=== PATIENT | male | born 1970 | race Caucasian/White ===

== ENCOUNTER 2024-03-10 11:32 | Emergency (ER) | payer OTHER, SELFPAY ==
--- NOTE | ~2024-03-10 | XR_ITS ---
EXAMINATION: XR chest 2V DATE: 03/10/2024 12:52 INDICATION: Chest pain TECHNIQUE: PA and lateral views of the chest were obtained. COMPARISON: None FINDINGS: The lungs are clear with no focal airspace opacities, pulmonary edema, pleural effusion or pneumothor ax. The cardiomediastinal silhouette is normal. Visualized bones and soft tissues are unremarkable. IMPRESSION: 1. No acute cardiopulmonary disease. Reviewed, dictated and finalized at location A.
--- NOTE | 2024-03-10 11:34 | ECG_ITS ---
Test Date: 2024-03-10 11:39:16 Measurements Intervals [place] Rate: 62 P: 69 VT: 176 QRS: 71 QRSD: 89 T: 54 QT: 371 QTc: 379 Interpretive Statements SINUS RHYTHM No previous ECG available for comparison Electronically Signed On 03-10-2024 11:57:20 CDT by Aung Pate M.D.
[2024-03-10 11:55] VITALS: BP 126/74; PULSE 62; RESP 16; TEMP 36.3; O2SAT 97
[2024-03-10 11:56] LABS: Basophils Percent Auto 0.3 % (0.2-1.2); Eosinophils Absolute Auto 0.1 K/mm3 (0-0.3); Hematocrit 40.3 % (42.0-52.0); Hemoglobin 14.2 g/dL (14.0-18.0); Immature Granulocyte Absolute 0.01 K/mm3 (0.00-0.031); Immature Granulocyte Percent A 0.1 % (0-0.5); Lymphocytes Absolute Auto 1.43 K/mm3 (0.9-3.2); Lymphocytes Percent Auto 21.3 % (18.3-44.2); Mean Corpuscular HGB Conc 35.2 g/dl (32-36); Mean Corpuscular Hemoglobin 32.9 pg (26-34); Mean Corpuscular Volume 93.5 fl (80-100); Mean Platelet Volume 9.1 fl (7.4-10.4); Monocytes Absolute Auto 0.5 K/mm3 (0.1-0.6); Monocytes Percent Auto 7.6 % (2.6-8.5); Neutrophils Absolute Auto 4.7 K/mm3 (1.3-6.7); Neutrophils Percent Auto 69.7 % (45.5-73.1); Platelet Count Result 197 k/mm3 (150-375); Red Blood Count 4.31 M/mm3 (4.6-6.20); White Blood Count 6.7 K/mm3 (4.5-10.0)
[2024-03-10 11:59] LABS: Alanine Aminotransferase 20 U/L (6-50); Albumin Level 4.6 g/dL (3.5-5.1); Alkaline Phosphatase 56 U/L (38-126); Anion Gap 8 mmol/L (4-12); Aspartate Amino Transferase 29 U/L (17-59); Bilirubin,Total 0.8 mg/dL (0.2-1.3); Blood Urea Nitrogen 23 mg/dL (9-20); Calcium 9.4 mg/dL (8.4-10.2); Carbon Dioxide 28 mmol/L (22-30); Chloride 106 mmol/L (98-107); Estimated Glomerular Filt Rate > 60; Glucose 102 mg/dL (65-110); Lipase 86 U/L (23-300); Potassium 3.7 mmol/L (3.4-5.0); Sodium 142 mmol/L (137-145)
[2024-03-10 12:01] LABS: INR 1.1; Prothrombin Time 14.6 Seconds (11.1-14.7)
[2024-03-10 12:02] LABS: Partial Thromboplastin Time 24.6 Seconds (22.3-36.8)
[2024-03-10 12:11] LABS: Troponin I < 0.012 ng/mL (0.000-0.034)
[2024-03-10] MEDS: ASPIRIN 81 MG CHEWABLE TABLET 324 MG PO (12:26)
[2024-03-10 12:27] VITALS: PULSE 57; O2SAT 98
[2024-03-10 12:29] VITALS: BP 136/81; PULSE 57; RESP 18; O2SAT 98
[2024-03-10 12:31] VITALS: BP 131/73; PULSE 58; RESP 16; O2SAT 99
--- NOTE | 2024-03-10 14:54 | ECG_ITS ---
Test Date: 2024-03-10 14:58:06 Measurements Intervals [place] Rate: 54 P: 60 CO: 185 QRS: 61 QRSD: 86 T: 49 QT: 394 QTc: 377 Interpretive Statements SINUS BRADYCARDIA Compared to ECG 03/10/2024 11:39:16 Sinus rhythm no longer present Electronically Signed On 03-10-2024 15:42:30 CDT by Aung Pate M.D.
[2024-03-10 15:09] LABS: Troponin I < 0.012 ng/mL (0.000-0.034)
--- NOTE | 2024-03-10 15:15 | ED.CHESTPAIN ---
HPI - Chest Pain General Chief Complaint: Chest Pain Stated Complaint: chest tightness Time Seen by Provider: 03/10/24 13:29 History of Present Illness HPI narrative: 54-year-old male with a history of GERD presenting with chest tightness. States that last night he was bowling and ate some buffalo sliders. States that he has a long history of heartburn and it is usually set off by spicy things. States that he had some chest tightness last night but then seemed to go away. He again had it this morning. States that it has been intermittent. States that is not pain at shows discomfort. No shortness of breath. States that he did have some diaphoresis last night. No nausea or vomiting. No new leg swelling. Related Data Home Medications Medication Instructions Recorded Confirmed omeprazole magnesium 20 mg 20 mg PO PRN PRN Gastric Reflux 03/10/24 03/10/24 tablet,delayed release (Prilosec OTC) Allergies Allergy/AdvReac Type Severity Reaction Status Date / Time No Known Allergies Allergy Unverified 03/10/24 12:28 Review of Systems Review of Systems: All systems reviewed & are unremarkable except as noted in HPI and below PMFSH Past Medical History Medical History Hx of hyperglycemia Family History Family History Father Diabetes mellitus Cerebrovascular accident Grandparent Hypertension Heart problem Cerebrovascular accident Social History Social History Smoking status: Never smoker Tobacco type: cigars Substance use: never Exam Narrative: GENERAL: Well-appearing, well-nourished, and in no acute distress. HEAD: Normocephalic, atraumatic. EYES: PERRLA and EOMI. ENT: Grossly unremarkable NECK: Supple. CHEST: Clear to auscultation. No respiratory distress. HEART: Regular rate and rhythm ABDOMEN: Soft, nontender, nondistended EXTREMITIES: No edema. SKIN: Warm, dry, no rash. NEURO: Alert and oriented x3. PSYCH: Normal mood and affect. Course Vital Signs Vital signs: Vital Signs Temperature 97.4 F L 03/10/24 11:55 Pulse Rate 62 03/10/24 11:55 Respiratory Rate 16 03/10/24 11:55 Blood Pressure 126/74 03/10/24 11:55 Pulse Oximetry 97 03/10/24 11:55 Temperature 97.4 F L 03/10/24 11:55 Pulse Rate 84 03/10/24 18:37 Respiratory Rate 18 03/10/24 18:37 Blood Pressure 122/78 03/10/24 18:37 Pulse Oximetry 99 03/10/24 18:37 Oxygen Delivery Room Air 03/10/24 12:27 MDM - Chest Pain MDM Narrative Medical decision making narrative: 54 year old male presenting with chest tightness. Vitals are stable. Exam remarkable for the above. EKG per my interpretation shows Normal sinus rhythm, no ST elevations or depressions. Blood work is unremarkable. Troponins are undetectable x2. Chest x-ray without acute abnormalities. Repeat EKG shows sinus bradycardia, no ST elevations or depressions. On re-evaluation, the patient is resting comfortably. Discussed the reassuring workup. Feel he is safe for outpatient management. Advised that he continue taking his Prilosec and try to avoid spicy foods. Advised close PCP follow-up. Appropriate return precautions given. Discharged in stable condition. Differential Diagnosis Differential diagnosis: Likely atypical chest pain, costochondritis, chest pain and other ( Gastritis, esophagitis) Medical Records Data Attestation: I reviewed the patient's medical records. Lab Data Attestation: I reviewed the patient's lab results. 03/10/24 11:44 03/10/24 11:44 Labs: Lab Results 03/10/24 03/10/24 Range/Units 11:44 14:44 WBC 6.7 (4.5-10.0) K/mm3 RBC 4.31 L (4.6-6.20) M/mm3 Hgb 14.2 (14.0-18.0) g/dL Hct 40.3 L (42.0-52.0) % MCV 93.5 (80-100) fl MCH 32.9 (26-34) pg MCHC 35.2 (32-36) g/dl RDW 12.0 (11.5-14.5) % Plt Count 197 (150-375) k/mm3 MPV 9.1 (7.4-10.4) fl Immature Gran % (Auto) 0.1 (0-0.5) % Neut % (Auto) 69.7 (45.5-73.1) % Lymph % (Auto) 21.3 (18.3-44.2) % [place] % (Auto) 7.6 (2.6-8.5) % Eos % (Auto) 1.0 (0-4.4) % Baso % (Auto) 0.3 (0.2-1.2) % Lymph # (Auto) 1.43 (0.9-3.2) K/mm3 [place] # (Auto) 0.5 (0.1-0.6) K/mm3 Eos # (Auto) 0.1 (0-0.3) K/mm3 Baso # (Auto) 0.0 (0.0-0.1) K/mm3 Abs Immat Gran (auto) 0.01 (0.00-0.031) K/mm3 Absolute Neuts (auto) 4.7 (1.3-6.7) K/mm3 Absolute Nucleated RBC 0.000 (0.0-0.012) K/mm3 Nucleated RBC % 0.0 (0.0-0.2) % PT 14.6 (11.1-14.7) Seconds INR 1.1 APTT 24.6 (22.3-36.8) Seconds Sodium 142 (137-145) mmol/L Potassium 3.7 (3.4-5.0) mmol/L Chloride 106 (98-107) mmol/L Carbon Dioxide 28 (22-30) mmol/L Anion Gap 8 (4-12) mmol/L BUN 23 H (9-20) mg/dL Creatinine 0.90 (0.7-1.3) mg/dL Estim Creat Clear Calc Not Reportable Estimated GFR > 60 (59 - ) Glucose 102 (65-110) mg/dL Calcium 9.4 (8.4-10.2) mg/dL Total Bilirubin 0.8 (0.2-1.3) mg/dL AST 29 (17-59) U/L ALT 20 (6-50) U/L Alkaline Phosphatase 56 (38-126) U/L Troponin I < 0.012 < 0.012 (0.000-0.034) ng/mL Total Protein 8.0 (6.3-8.2) g/dL Albumin 4.6 (3.5-5.1) g/dL Lipase 86 (23-300) U/L Imaging Data Radiologist's impression: ITS Impressions Chest X-Ray 03/10/24 12:56 IMPRESSION: 1. No acute cardiopulmonary disease. Critical Care Time Critical Care Time Critical Care Time: No Discharge Plan Discharge Clinical Impression: Chest tightness Patient Disposition: Home, Self-Care Condition: Stable Instructions: Antibiotic Form, Chest Pain (ED) Additional Instructions: Your EKG, chest x-ray, blood work today are normal. Please follow-up closely with your PCP. If your symptoms worsen or other concerning symptoms arise, please return to the ER. Prescriptions: No Action omeprazole magnesium [Prilosec OTC] 20 mg Tablet,Delayed Release (Dr/Ec) 20 mg PO PRN PRN (Reason: Gastric Reflux) Follow-up/Referrals: Ming Taylor MD [Primary Care Provider] -
[2024-03-10 16:30] VITALS: BP 122/77; PULSE 62; RESP 16; O2SAT 99
[2024-03-10 18:37] VITALS: BP 122/78; PULSE 84; RESP 18; O2SAT 99
== END 2024-03-10 18:38 | disposition home or self-care (01) ==
PROVIDERS: Emergency Medicine; Emergency Provider Emergency Medicine; PCP Family Medicine
DX: R07.89 Other chest pain (principal)
CPT/HCPCS: 36415; 71046; 80053; 83690; 84484; 85025; 85610; 85730; 93005; 99284; A9270